=== PATIENT | female | born 1935 | race Caucasian/White ===

== ENCOUNTER 2016-05-16 10:32 | Emergency (ER) | payer MEDICARE, OTHER ==
[~2016-05-16] VITALS: Ht 165.1 cm; Wt 92.3 kg
[~2016-05-16 10:32] MED LIST: 00186-0370-20 IH; AMOXICILLIN 8751 TAB PO; ASPIRIN 81M81 MG/TA2 PO; CATAPRES 0.1MG0.1 MG PO; CATAPRES0.2 MG PO; COREG 6.256.25 MG/TA PO; COREG12.5 MG PO; CRESTOR 10MG10 MG PO; DIABETA 5MG5 MG/TAB PO; HYZAAR 25 MG-101 TAB PO; HYZAAR 50-12.1 UDTAB PO; ISORDIL TITRADO30 MG PO; KLOR-CON 1010 MEQ PO; KOMBIGLYZE XR 11 TER PO; LASIX 40MG TABL40 MG PO; MOBIC 7.5MG7.5 MG PO; NASONEX SPRAY17 GM NS; NORVASC 10MG10 MG PO; PROAIR HFA0.09 MG/AC IH; SINEQUAN 5050 MG/CAP PO; SYNTHROID0.05 MG/TA PO; TRICOR145 MG PO; VALIUM 5MG T5 MG/TAB PO; VESICARE 5MG5 MG PO; ZOCOR 40MG40 MG PO; ZOLOFT 50MG50 MG PO; ZYRTEC 10MG10 MG PO
[2016-05-16 10:34] VITALS: TEMP 97.6
[2016-05-16 11:23] LABS: PH 7 (5-8); SQUAMOUS EPITHELIAL 0-2 /hpf; URINE APPEARANCE Clear; URINE BACTERIA None Seen /hpf; URINE BILIRUBIN Negative (NEGATIVE); URINE BLOOD Negative (NEGATIVE); URINE COLOR Straw; URINE GLUCOSE 2+ (NEGATIVE); URINE KETONE Negative (NEGATIVE); URINE RBC 0-2 /hpf; URINE UROBILINOGEN Negative (NEGATIVE); URINE WBC 0-2 /hpf
[2016-05-16 11:23] LABS: BASO # 0.1 (0.0-0.2); BASO % 0.5 % (0.0-2.0); EOS # 0.4 (0.0-0.7); EOS % 3.7 % (0-4.0); GRAN # 7.6 (1.4-6.5); HEMOGLOBIN 12.1 g/dl (12.5-16.0); LYMPH # 1.3 (1.2-3.4); LYMPH % 13.6 % (20.0-51.0); MEAN CELL VOLUME 88 fl (80.0-100.0); MEAN CORPUSCULAR HEMOGLOBIN 28 pg (27.0-31.0); MEAN CORPUSCULAR HGB CONC 32 g/dl (33.0-37.0); MEAN PLATELET VOLUME 9.2 fl (7.4-10.4); MONO # 0.5 (0.1-0.6); MONO % 4.7 % (1.7-9.3); PLATELET COUNT 291 K/mm3 (130-400); RED BLOOD COUNT 4.32 M/mm3 (4.10-5.30); WHITE BLOOD COUNT 9.8 K/mm3 (4.8-10.8)
[2016-05-16 11:34] LABS: ADJUSTED CALCIUM 9.4 mg/dL (8.4-10.2); ALBUMIN 4.1 gm/dL (3.5-5.0); BILIRUBIN,TOTAL 0.9 mg/dL (0.0-1.0); CALCIUM 9.5 mg/dL (8.4-10.2); CREATININE, serum 0.91 mg/dL (0.52-1.25); POTASSIUM 4.5 mmol/L (3.4-5.0); TOTAL PROTEIN 7.2 gm/dL (6.4-8.2)
[2016-05-16] MEDS ORDERED: MYRBETR50MG PO (11:58)
[2016-05-16] MEDS ORDERED: AMARYL 2MG T2 MG/TAB PO (11:59)
[2016-05-16] MEDS ORDERED: HYZAAR 50-12.1 UDTAB PO (12:04)
[2016-05-16 13:14] VITALS: BP 173/81; PULSE 73
== END 2016-05-16 13:57 | disposition home or self-care (01) ==
LOC: COL.ER 10:32
PROVIDERS: Emergency Medicine
DX: S09.90XA Unspecified injury of head, initial encounter (principal); E11.65 Type 2 diabetes mellitus with hyperglycemia; Z79.84 Long term (current) use of oral hypoglycemic drugs; R42 Dizziness and giddiness; I45.10 Unspecified right bundle-branch block; W18.30XA Fall on same level, unspecified, initial encounter; Y92.009 Unspecified place in unspecified non-institutional (private) residence as the place of occurrence of the external cause
CPT/HCPCS: J1885; J7030

== ENCOUNTER → 2016-06-16 | Outpatient (CLI) | payer MEDICARE, OTHER ==
[~2016-06-16] MED LIST changes: +AMARYL 2MG T2 MG/TAB PO; +CEPHALEXIN500 M1 PO; +HYZAAR 12.5 MG-1 TAB PO; +MYRBETR50MG PO; +NORCO 325 MG-51 TAB PO; +NOVOLOG 100U100 U/M1 SQ; +NOVOLOG FLEX100 U/ML SQ; +TRESIBA FL200 UNIT/1 SQ
== END ==
LOC: COL.RAD 11:34
DX: E04.2 Nontoxic multinodular goiter (principal); E03.8 Other specified hypothyroidism

== ENCOUNTER → 2016-07-18 | Outpatient (CLI) | payer MEDICARE, OTHER | LOC: SUN.DIA 11:25 | DX: E11.65 Type 2 diabetes mellitus with hyperglycemia (principal); Z79.4 Long term (current) use of insulin; Z68.35 Body mass index [BMI] 35.0-35.9, adult; Z73.1 Type A behavior pattern; E78.5 Hyperlipidemia, unspecified | CPT/HCPCS: G0108 ==

== ENCOUNTER 2016-07-26 07:48 | Outpatient (CLI) | payer MEDICARE, OTHER ==
[~2016-07-26] VITALS: Ht 165.1 cm; Wt 90.9 kg
[~2016-07-26 07:48] MED LIST changes: -CEPHALEXIN500 M1 PO; -HYZAAR 12.5 MG-1 TAB PO; -NORCO 325 MG-51 TAB PO; -NOVOLOG 100U100 U/M1 SQ; -NOVOLOG FLEX100 U/ML SQ; -TRESIBA FL200 UNIT/1 SQ
[2016-07-26] MEDS ORDERED: HYZAAR 12.5 MG-1 TAB PO (08:22)
[2016-07-26 08:50] VITALS: BP 101/48; PULSE 77; TEMP 97.8
[2016-07-26] MEDS ORDERED: TRESIBA FL200 UNIT/1 SQ (08:52)
[2016-07-26] MEDS ORDERED: CEPHALEXIN500 M1 PO (09:39)
[2016-07-26 09:50] VITALS: BP 110/55; PULSE 65; TEMP 97.5
[2016-07-26 10:05] VITALS: BP 105/58; PULSE 66
== END 2016-07-26 11:04 | disposition home or self-care (01) ==
LOC: COL.RAD 07:48
DX: E03.8 Other specified hypothyroidism (principal); R94.31 Abnormal electrocardiogram [ECG] [EKG]
CPT/HCPCS: C1764

== ENCOUNTER → 2016-08-04 | Outpatient (CLI) | payer MEDICARE, OTHER ==
[~2016-08-04] MED LIST changes: +CEPHALEXIN500 M1 PO; +HYZAAR 12.5 MG-1 TAB PO; +NORCO 325 MG-51 TAB PO; +NOVOLOG 100U100 U/M1 SQ; +NOVOLOG FLEX100 U/ML SQ; +TRESIBA FL200 UNIT/1 SQ
== END ==
LOC: SUN.DIA 11:53
DX: E11.65 Type 2 diabetes mellitus with hyperglycemia (principal); Z79.4 Long term (current) use of insulin; Z71.3 Dietary counseling and surveillance; E78.5 Hyperlipidemia, unspecified

== ENCOUNTER 2016-08-10 09:20 | Day surgery (SDC) | payer MEDICARE, OTHER ==
[2016-08-10] VITALS (13 sets, daily range): BP systolic 109–160; BP diastolic 44–88; PULSE 71–88; TEMP 97–98.3
[~2016-08-10] VITALS: Ht 165.1 cm; Wt 90.9 kg
[~2016-08-10 09:20] MED LIST changes: -NORCO 325 MG-51 TAB PO; -NOVOLOG 100U100 U/M1 SQ; -NOVOLOG FLEX100 U/ML SQ
[2016-08-10 10:14] LABS: INR 1.1 (0.8-3.0); PROTHROMBIN TIME 12.5 SECONDS (9.7-12.8)
[2016-08-10 10:16] LABS: HEMATOCRIT 38.3 % (37.0-47.0); HEMOGLOBIN 12.3 g/dl (12.5-16.0); MEAN CELL VOLUME 89 fl (80.0-100.0); MEAN CORPUSCULAR HEMOGLOBIN 29 pg (27.0-31.0); MEAN CORPUSCULAR HGB CONC 32 g/dl (33.0-37.0); MEAN PLATELET VOLUME 9.5 fl (7.4-10.4); PLATELET COUNT 348 K/mm3 (130-400); REDCELL DISTRIBUTION WIDTH-CV 14.7 % (11.5-14.5); WHITE BLOOD COUNT 8.3 K/mm3 (4.8-10.8)
[2016-08-10 10:48] LABS: CALCIUM 9.7 mg/dL (8.4-10.2); CREATININE, serum 0.82 mg/dL (0.52-1.25); POTASSIUM 3.7 mmol/L (3.4-5.0)
[2016-08-10] MEDS ORDERED: ZYRTEC 10MG10 MG PO (11:07)
[2016-08-10] MEDS ORDERED: NOVOLOG FLEX100 U/ML SQ (11:12)
[2016-08-11 03:21] VITALS: BP 134/57; PULSE 78; TEMP 97.6
[2016-08-11 08:01] VITALS: BP 149/60; PULSE 82; TEMP 98.5
[2016-08-11 11:30] VITALS: BP 118/52; PULSE 80; TEMP 98.4
[2016-08-11] MEDS ORDERED: CEPHALEXIN500 M1 PO (12:41)
[2016-08-11] MEDS ORDERED: COREG 6.256.25 MG/TA PO (12:46)
== END 2016-08-11 13:27 | disposition home or self-care (01) ==
LOC: EUO 09:20 → COL.CAR 09:30 → MEDICAL 14:49 → EUO 08-11 13:27
PROVIDERS: Internal Medicine Cardiovascular Disease
DX: I49.5 Sick sinus syndrome (principal); I08.0 Rheumatic disorders of both mitral and aortic valves; I35.0 Nonrheumatic aortic (valve) stenosis; I34.0 Nonrheumatic mitral (valve) insufficiency; I25.10 Atherosclerotic heart disease of native coronary artery without angina pectoris; I10 Essential (primary) hypertension; E11.9 Type 2 diabetes mellitus without complications; E78.5 Hyperlipidemia, unspecified
CPT/HCPCS: OP; C1769; C1785; C1894; C1898; J0690; J1815; J2250; J3010; J7030

== ENCOUNTER 2016-09-12 09:32 | Day surgery (SDC) | payer MEDICARE, OTHER ==
[~2016-09-12] VITALS: Ht 165.2 cm; Wt 90.0 kg
[~2016-09-12 09:32] MED LIST changes: +NOVOLOG FLEX100 U/ML SQ
[2016-09-12 10:02] LABS: HEMOGLOBIN 12.1 g/dl (12.5-16.0); MEAN CELL VOLUME 87 fl (80.0-100.0); MEAN CORPUSCULAR HEMOGLOBIN 29 pg (27.0-31.0); MEAN CORPUSCULAR HGB CONC 33 g/dl (33.0-37.0); MEAN PLATELET VOLUME 9.4 fl (7.4-10.4); PLATELET COUNT 309 K/mm3 (130-400); RED BLOOD COUNT 4.24 M/mm3 (4.10-5.30); REDCELL DISTRIBUTION WIDTH-CV 14.6 % (11.5-14.5); WHITE BLOOD COUNT 7.3 K/mm3 (4.8-10.8)
[2016-09-12 10:05] LABS: HEMATOCRIT 36.8 % (37.0-47.0)
[2016-09-12 10:06] LABS: INR 1.1 (0.8-3.0); PROTHROMBIN TIME 12.2 SECONDS (9.7-12.8)
[2016-09-12 10:15] VITALS: BP 140/62; PULSE 67; TEMP 97.8
[2016-09-12 10:16] LABS: CALCIUM 9.5 mg/dL (8.4-10.2); CREATININE, serum 0.82 mg/dL (0.52-1.25); POTASSIUM 3.6 mmol/L (3.4-5.0)
[2016-09-12 11:19] VITALS: BP 163/83; PULSE 71
[2016-09-12 15:03] VITALS: BP 148/68; PULSE 83
[2016-09-12 20:45] VITALS: BP 122/56; PULSE 75; TEMP 97.5
[2016-09-12 23:36] VITALS: BP 129/55; PULSE 73; TEMP 98.1
[2016-09-13 03:15] VITALS: BP 128/53; PULSE 72; TEMP 98.6
[2016-09-13 07:35] VITALS: BP 145/62; PULSE 76; TEMP 97.9
[2016-09-13] MEDS ORDERED: NORCO 325 MG-51 TAB PO (09:36)
[2016-09-13] MEDS ORDERED: CEPHALEXIN500 M1 PO (09:36)
== END 2016-09-13 10:59 | disposition home or self-care (01) ==
LOC: COL.CAR 09:32 → MEDICAL 13:12 → COL.CAR 09-13 10:59
PROVIDERS: Internal Medicine Cardiovascular Disease
DX: T82.118A Breakdown (mechanical) of other cardiac electronic device, initial encounter (principal); I49.5 Sick sinus syndrome; I10 Essential (primary) hypertension; E11.9 Type 2 diabetes mellitus without complications; E78.5 Hyperlipidemia, unspecified; E03.9 Hypothyroidism, unspecified; I25.10 Atherosclerotic heart disease of native coronary artery without angina pectoris; Z79.899 Other long term (current) drug therapy; Z79.82 Long term (current) use of aspirin; Z79.4 Long term (current) use of insulin
CPT/HCPCS: OP; J0690; J1815; J2250; J3010; J7030

== ENCOUNTER 2016-11-25 21:44 | Emergency (ER) | payer MEDICARE, OTHER ==
[~2016-11-25] VITALS: Ht 160 cm; Wt 90.9 kg
[~2016-11-25 21:44] MED LIST changes: +NORCO 325 MG-51 TAB PO
[2016-11-25 21:48] VITALS: BP 147/75; TEMP 98.5
[2016-11-25] MEDS ORDERED: NOVOLOG 100U100 U/M1 SQ (22:32)
[2016-11-25 23:50] VITALS: PULSE 83
== END 2016-11-25 23:50 | disposition home or self-care (01) ==
LOC: COL.ER 21:44
DX: S92.251A Displaced fracture of navicular [scaphoid] of right foot, initial encounter for closed fracture (principal); S93.401A Sprain of unspecified ligament of right ankle, initial encounter; W23.0XXA Caught, crushed, jammed, or pinched between moving objects, initial encounter; Y92.009 Unspecified place in unspecified non-institutional (private) residence as the place of occurrence of the external cause; E11.9 Type 2 diabetes mellitus without complications; Z79.4 Long term (current) use of insulin; I10 Essential (primary) hypertension

== ENCOUNTER → 2017-06-23 | Outpatient (REF) ==
[~2017-06-23] MED LIST changes: +NOVOLOG 100U100 U/M1 SQ
[2017-06-23 14:26] LABS: COLLECTION METHOD CLEAN CATCH
[2017-06-23 15:15] LABS: MUCOUS Present /lpf; PH 6 (5-8); SQUAMOUS EPITHELIAL None Seen /hpf; URINE APPEARANCE Cloudy; URINE BACTERIA Moderate /hpf; URINE BILIRUBIN Negative (NEGATIVE); URINE BLOOD Negative (NEGATIVE); URINE COLOR Yellow; URINE GLUCOSE Negative (NEGATIVE); URINE KETONE Negative (NEGATIVE); URINE LEUKOCYTE ESTERASE 3+ (NEGATIVE); URINE NITRATE Positive (NEGATIVE); URINE PROTEIN(semi-quant) Negative (NEGATIVE); URINE UROBILINOGEN Negative (NEGATIVE); URINE WBC >50 /hpf
== END ==
LOC: ZCOL.LAB 14:06
PROVIDERS: Nurse Practitioner Family
DX: Z01.89 Encounter for other specified special examinations (principal)